=== PATIENT | female | born 1990 | race Caucasian/White ===

== ENCOUNTER → 2018-01-26 18:07 | Outpatient (CLI) | payer OTHER, SELFPAY | PROVIDERS: Family Provider Family Medicine; PCP Family Medicine; Visit Provider Physician Assistant | DX: J02.9 Acute pharyngitis, unspecified (principal) | CPT/HCPCS: 87081 ==

== ENCOUNTER → 2018-04-29 09:09 | Outpatient (CLI) | payer OTHER, SELFPAY ==
[2018-04-29 10:14] LABS: Absolute Neutrophil Count 2.3 X10^3/uL (2.0-7.7); Basophil# 0.01 X10^3/uL; Basophil% 0.2 % (0-1); Eosinophil# 0.07 X10^3/uL; Eosinophils% 1.4 % (0-5); Hematocrit 40.1 % (37-47); Hemoglobin 13.3 g/dl (12.0-15.0); Lymphocyte % 43.8 % (19-41); Mean Corp Hgb Conc 33.2 g/gl (32-36); Mean Corpuscular Hgb 27.5 pg (27.0-32.0); Mean Corpuscular Volume 82.9 fL (81-99); Monocyte# 0.46 X10^3/uL; Monocyte% 9.2 % (0-10); Neutrophil # 2.28 X10^3/uL (2.7-7.7); Neutrophil % 45.4 % (47-70); Platelet Count 277 K/mm3 (150-450); RBC Distribution Width SD 42.3 fl (35.1-43.9); Red Blood Count 4.84 M/mm3 (4.2-5.4)
[2018-04-29 10:17] LABS: POSITIVE COUNT NO; POSITIVE DIFFERENTIAL NO; POSITIVE MORPHOLOGY NO
[2018-04-29 10:55] LABS: Cholesterol 149 mg/dL (200); Ferritin 4 ng/mL (8-252); High Density Lipoprotein 43 mg/dL; Thyroid Stim Hormone (TSH) 1.75 uIU/mL (0.358-3.74); Triglycerides 78 mg/dL; Very Low Density Lipoprotein 16 mg/dL (5-40)
[2018-04-30 08:35] LABS: Vitamin B12 493 pg/mL (211-911); Vitamin D,25 Hydroxy 31.3 ng/mL (29.95-100.01)
== END ==
PROVIDERS: Family Provider Family Medicine; PCP Family Medicine; Visit Provider Family Medicine
DX: R53.83 Other fatigue (principal); K90.0 Celiac disease
CPT/HCPCS: 36415; 80061; 82306; 82607; 82728; 84443; 85025

== ENCOUNTER → 2018-07-07 11:25 | Outpatient (CLI) | payer OTHER, SELFPAY ==
[2018-07-07 13:43] LABS: Hematocrit 42.7 % (37-47); Hemoglobin 14.8 g/dl (12.0-15.0); Mean Corp Hgb Conc 34.7 g/gl (32-36); Mean Corpuscular Hgb 30.1 pg (27.0-32.0); Mean Corpuscular Volume 86.8 fL (81-99); Mean Platelet Vol. 10.5 fl (6.2-12.0); Platelet Count 308 K/mm3 (150-450); RBC Distribution Width CV 13.3 % (11.6-14.6); Red Blood Count 4.92 M/mm3 (4.2-5.4); White Blood Count 6.3 K/mm3 (4.4-11.0)
[2018-07-07 13:44] LABS: Scan Indicated on CBC? Y/N NO
[2018-07-07 14:01] LABS: Estradiol 45.1 pg/mL; Ferritin 28 ng/mL (8-252); Free T3 3.4 pg/mL (2.18-3.98); Prolactin 5.5 ng/mL; T4 Free Direct 1.07 ng/dL (0.76-1.46); Thyroid Stim Hormone (TSH) 1.59 uIU/mL (0.358-3.74)
[2018-07-07 14:09] LABS: Progesterone Level 1.03 ng/mL (See Comment)
[2018-07-07 14:25] LABS: Hemoglobin A1c 5.1 % (4.2-6.3)
[2018-07-09 15:16] LABS: Thyroid Peroxidase AB 12 IU/mL (0-34)
[2018-07-10 14:05] LABS: HPV Reflexed? NOT INDICATED
== END ==
PROVIDERS: Visit Provider Obstetrics & Gynecology
DX: Z12.4 Encounter for screening for malignant neoplasm of cervix (principal); L65.9 Nonscarring hair loss, unspecified; N92.5 Other specified irregular menstruation
CPT/HCPCS: 36415; 82670; 82728; 83036; 84144; 84146; 84403; 84439; 84443; 84481; 85027; 86376; 88175; G0145

== ENCOUNTER → 2018-07-30 18:12 | Outpatient (CLI) | payer OTHER, SELFPAY ==
--- NOTE | 2018-07-30 18:15 | US_ITS ---
STUDY: ULTRASOUND OF THE FEMALE PELVIS - COMPLETE REASON FOR EXAM: Female, 28 years old. Abnormal menstruation LMP: 07/24/2018 TECHNIQUE: Both transabdominal and transvaginal probes are used TECHNICAL QUALITY: Adequate. COMPARISON: None. FINDINGS: The uterus is normally anteverted and measures 9.0 x 5.4 x 3.7 cm with an endometrial stripe thickness of 2 mm. There is an IUD within endometrial canal. Both ovaries are seen in both demonstrate normal Doppler flow. The right measures 3.0 x 2.1 x 1.6 cm and the left 3.0 x 1.9 x 1.6 cm. Multiple follicular cysts are seen bilaterally. There is no free fluid in the cul-de-sac and no abnormal adnexal masses. US/Pelvic (Non ) IMPRESSION: The study is within normal limits Electronically Signed: Twin Tolentino MD at 4:48 EST Tel , Service support ,
== END ==
PROVIDERS: Family Provider Family Medicine; PCP Family Medicine; Referring Provider Obstetrics & Gynecology; Visit Provider Obstetrics & Gynecology
DX: N92.5 Other specified irregular menstruation (principal); N93.8 Other specified abnormal uterine and vaginal bleeding; N94.10 Unspecified dyspareunia
CPT/HCPCS: 76856; 93976

== ENCOUNTER → 2018-08-12 14:22 | Outpatient (CLI) | payer OTHER, SELFPAY ==
--- OUTSIDE RECORDS SUMMARY | 2018-10-07 19:54 | XMS RPT_ITS ---
:1990 Author Organization OHIP Care Team Providers Name Role Phone DOCTOR, OUT OF TOWN Attending Unavailable Sanju Perea Primary Care Unavailable Oc Holt Attending Unavailable Sanju Perea Referring Unavailable Oc Holt Attending Unavailable Sanju Perea Primary Care Unavailable Sanju Perea Attending Unavailable Sanju Perea Primary Care Unavailable Kavya Barreto Attending Unavailable Kavya Barreto Attending Unavailable Kavya Barreto Referring Unavailable Sanju Perea Primary Care Unavailable Kavya Barreto Attending Unavailable Sanju Perea Primary Care Unavailable PROBLEMS PROBLEMS DATE TYPE CONDITION / CODE ATTENDING STATUS SOURCE 07/07/2018 Unknown Z12.4 - Encounter Kavya Barreto for screening for [facility] neoplasm of Repository cervix / Z12.4(ICD-10) 04/29/2018 Unknown R53.83 - Other Sanju Perea Active [place] fatigue / Community R53.83(ICD-10) Hospital Repository 04/29/2018 Unknown K90.0 - Celiac Sanju Perea Active [place] disease / Community K90.0(ICD-10) Hospital Repository 01/27/2018 Unknown J02.9 - Acute Oc Holt Active [place] pharyngitis, Community unspecified / Hospital J02.9(ICD-10) Repository PROCEDURES PROCEDURES No Procedure Records FoundRESULTS RESULTS Observed: 08/12/2018 Status: F Source: [place] CULTURE, URINE 10:20 AM [facility] REPOSITORY Urine Culture ORGANISM 1: Mixed Gram Positive Organisms [place] Count 1000-10,000 MIX CULTURE Mixed contaminants. Submit a new specimen if indicated. Performed By: #### M100.0650 #### [facility] [address] [facility] [place], [address] PELVIC (NON ) Observed: 07/30/2018 Status: F Source: [place] 6:15 PM [facility] REPOSITORY [facility] Imaging Services [address] [place] [address] Pelvic (Non ) MR#: [id number] Acct: [id number] Name: MARYAM PEREA Rep #: [id number] : 1990 F 28 From: Twin Tolentino MD PCP: Sanju Perea MD Status: REG CLI Study: Pelvic (Non ) Date of Exam: 07/30/18 Exam# [id number] Ordering Dr: Kavya Barreto MD STUDY: ULTRASOUND OF THE FEMALE PELVIS - COMPLETE REASON FOR EXAM: Female, 28 years old. Abnormal menstruation LMP: 07/24/2018 TECHNIQUE: Both transabdominal and transvaginal probes are used TECHNICAL QUALITY: Adequate. COMPARISON: None. FINDINGS: The uterus is normally anteverted and measures 9.0 x 5.4 x 3.7 cm with an endometrial stripe thickness of 2 mm. There is an IUD within endometrial canal. Both ovaries are seen in both demonstrate normal Doppler flow. The right measures 3.0 x 2.1 x 1.6 cm and the left 3.0 x 1.9 x 1.6 cm. Multiple follicular cysts are seen bilaterally. There is no free fluid in the cul-de-sac and no abnormal adnexal masses. US/Pelvic (Non ) IMPRESSION: The study is within normal limits Electronically Signed: Twin Tolentino MD at 4:48 EST Tel , Service support , CC: Kavya Barreto MD; Sanju Perea MD Agriculture Worker: Signed CBC-COMPLETE BLOOD CNT Collected: 07/07/2018 Status: F Source: [place] NO DIFF 11:30 AM [facility] REPOSITORY TYPE CODE TESTS RESULT OUT OF RANGE REFERENCE UNITS LAB L100.1000 4.4-11.0 K/mm3 Normal WBC 6.3 LAB L100.1200 4.2-5.4 M/mm3 Normal RBC 4.92 LAB L100.1300 12.0-15.0 g/dl Normal HGB 14.8 LAB L100.1400 37-47 % Normal HCT 42.7 LAB L100.1500 81-99 fL Normal MCV 86.8 LAB L100.1600 27.0-32.0 pg Normal MCH 30.1 LAB L100.1700 32-36 g/gl Normal MCHC 34.7 LAB L100.1810 11.6-14.6 % Normal RDW CV 13.3 LAB L100.1820 35.1-43.9 fl Normal RDW SD 42.0 LAB L100.1900 150-450 K/mm3 Normal PLT 308 LAB L100.2000 6.2-12.0 fl Normal MPV 10.5 Performed By: #### L100.0500 #### [facility] [address] [place], [place], [address] FREE T3 Collected: 07/07/2018 Status: F Source: [place] 11:30 AM [facility] REPOSITORY TYPE CODE TESTS RESULT OUT OF RANGE REFERENCE UNITS LAB L501.43107 2.18-3.98 pg/mL Normal FREE T3 3.4 Performed By: #### L501.72611, L501.9520, L503.6550, L506.0400, L3100.5420, L3300.1750 #### [facility] [address] [facility] [facility]. [place], [place], [address] THYROID STIM HORMONE Collected: 07/07/2018 Status: F Source: [place] (TSH) 11:30 AM [facility] REPOSITORY TYPE CODE TESTS RESULT OUT OF RANGE REFERENCE UNITS LAB L501.9520 0.358-3.74 uIU/mL Normal TSH 1.59 Performed By: #### L501.61034, L501.9520, L503.6550, L506.0400, L3100.5420, L3300.1750 #### [facility] [address]. [place], [place], [id number] FERRITIN Collected: 07/07/2018 Status: F Source: [place] 11:30 AM [facility] REPOSITORY TYPE CODE TESTS RESULT OUT OF RANGE REFERENCE UNITS LAB L503.6550 8-252 ng/mL Normal FERRITIN 28 Performed By: #### L501.00629, L501.9520, L503.6550, L506.0400, L3100.5420, L3300.1750 #### [facility] [address] [facility]. [place], [place], [address] T4 FREE DIRECT Collected: 07/07/2018 Status: F Source: [place] 11:30 AM [facility] REPOSITORY TYPE CODE TESTS RESULT OUT OF RANGE REFERENCE UNITS LAB L506.0400 0.76-1.46 ng/dL Normal T4 FREE 1.07 DIRECT Performed By: #### L501.15816, L501.9520, L503.6550, L506.0400, L3100.5420, L3300.1750 #### [facility] [address] [facility]. [place], [place], [address] PROLACTIN Collected: 07/07/2018 Status: F Source: [place] 11:30 AM [facility] REPOSITORY TYPE CODE TESTS RESULT OUT OF RANGE REFERENCE UNITS LAB L3100.5420 ng/mL Normal PROLACTIN 5.5 Result Comment: NORMAL REFERENCE RANGES FEMALE NON- 2.2 - 30.3 ng/mL 8.1 - 347.6 ng/mL POST-MENOPAUSAL 0.7 - 31.5 ng/mL MALE 2.5 - 17.4 ng/mL NEW TEST METHOD AND REFERENCE RANGES FEBRUARY 02, 2012 Performed By: #### L501.28446, L501.9520, L503.6550, L506.0400, L3100.5420, L3300.1750 #### [facility] [address] [place], [address] ESTRADIOL Collected: 07/07/2018 Status: F Source: [place] 11:30 AM [facility] REPOSITORY TYPE CODE TESTS RESULT OUT OF RANGE REFERENCE UNITS LAB L3300.1750 pg/mL Normal ESTRADIOL 45.1 Result Comment: NORMAL REFERENCE RANGES FEMALE FOLLICULAR 21.4 - 164.8 pg/mL MID-CYCLE PEAK 49.9 - 367.2 pg/mL LUTEAL 40.2 - 259.0 pg/mL POST-MENOPAUSAL ON MHT <11.0 - 462.1 pg/mL NOT ON MHT <11.0 - 58.3 pg/mL MALE <11.0 - 52.5 pg/mL NOTE: [facility] HAS CONFIRMED THE DRUG FULVETRANT (FASLODEX) MAY CAUSE FALSELY ELEVATED ESTRADIOL RESULTS WHEN USING THIS TEST METHOD. IF PATIENT IS TAKING FULVESTRANT AN ALTERNATIVE METHOD SHOULD BE USED TO DETERMINE ESTRADIOL CONCENTRATION. Performed By: #### L501.44238, L501.9520, L503.6550, L506.0400, L3100.5420, L3300.1750 #### [facility] [address] [place], [address] TESTOSTERONE, SERUM TOTAL Collected: 07/07/2018 Status: F Source: [place] 11:30 AM [facility] REPOSITORY TYPE CODE TESTS RESULT OUT OF REFERENCE UNITS RANGE LAB L509.3000 ng/dL Testosterone Normal 37.19 Result Comment: NORMAL REFERENCE RANGES MALE AGE <50 123.06 - 813.86 ng/dL MALE AGE >50 89.98 - 780.10 ng/dL FEMALE PREMENOPAUSE AGE 21 - 60 9.01 - 47.94 ng/dL FEMALE POSTMENOPAUSE AGE 45 - 89 <7.00 - 45.62 ng/dL REFERENCE RANGE AND METHODOLOGY CHANGED 09/02/2017 Performed By: #### L509.3000, L509.4001 #### [facility] [address] [facility] [place], [address] PROGESTERONE LEVEL Collected: 07/07/2018 Status: F Source: [place] 11:30 AM [facility] REPOSITORY TYPE CODE TESTS RESULT OUT OF REFERENCE UNITS RANGE LAB L509.4001 See Comment ng/mL Progesterone Normal 1.03 Result Comment: Progesterone Reference Table: UNITS Female: Follicular 0.15 - 1.40 ng/mL Luteal 3.34 - 25.56 ng/mL Mid-luteal 4.44 - 28.03 ng/mL Postmenopausal 0.0 - 0.73 ng/mL : 1st Trimester 11.22 - 90.00 ng/mL 2nd Trimester 25.55 - 89.40 ng/mL 3rd Trimester 48.40 -422.50 ng/mL Performed By: #### L509.3000, L509.4001 #### [facility] [address] [place], [address] HEMOGLOBIN A1C Collected: 07/07/2018 Status: F Source: [place] 11:30 AM [facility] REPOSITORY TYPE CODE TESTS RESULT OUT OF RANGE REFERENCE UNITS LAB L501.9985 4.2-6.3 % Normal HGB A1C 5.1 Performed By: #### L501.9985 #### [facility] [address] [place], [address] THYROID PEROXIDASE AB Collected: 07/07/2018 Status: F Source: [place] 11:30 AM [facility] REPOSITORY TYPE CODE TESTS RESULT OUT OF RANGE REFERENCE UNITS LAB L3300.6900 0-34 IU/mL Normal TPO AB 12 0776 Result Comment: Performed at: - [facility] [id number] Foreign Language Instructor: Steve Escobar PhD, Phone: [phone] Performed By: #### L3300.6900 #### [facility] (refer to report for specific site) refer to report for address and phone number PAP I-G W/RFX HRHPV Collected: 07/07/2018 Status: F Source: [place] 10:30 AM [facility] REPOSITORY Order Comment: CYTOLOGY INFORMATION: - CLINICAL INFORMATION: - DATE LMP/MENOPAUSE: 06/27/18 LMP - COLLECTION VIAL: Thin Prep Vial - ELECTRIC TRANSFER OPERATOR SOURCE: CERVICAL/ENDOCERVICAL - COLLECTION TECHNIQUE: BRUSH/SPATULA Specimen Comment: [id number] Specimen Comment: Source.............Cervix;Endocervix Specimen Comment: LMP / Prev Treat...[id number] Specimen Comment: No. of containers..01 ThinPrep Vial TYPE CODE TESTS RESULT OUT OF RANGE REFERENCE UNITS LAB L7400.0800 . Normal DIAGN Comment Result Comment: NEGATIVE FOR INTRAEPITHELIAL LESION AND MALIGNANCY. LAB L7400.0900 . Normal ADEQ Comment Result Comment: Satisfactory for evaluation. Endocervical and/or squamous metaplastic cells (endocervical component) are present. LAB L7400.1400 . Normal PERFORM Comment Result Comment: aRzia Lopez, Residency Coordinator LAB L7400.2575 . Normal TEST METHOD Comment Result Comment: This liquid based ThinPrep(R) pap test was screened with the use of an image guided system. LAB L7400.2600 . Normal . COMM LAB L7400.2700 . Normal PAPSMR Comment Result Comment: The Pap smear is a screening test designed to aid in the detection of premalignant and malignant conditions of the uterine cervix. It is not a diagnostic procedure and should not be used as the sole means of detecting cervical cancer. Both false-positive and false-negative reports do occur. LAB L7400.2800 . Normal HPV RFLX Comment Result Comment: The HPV DNA reflex criteria were not met with this specimen result therefore, no HPV testing was performed. Performed at: - [facility] [id number] Foreign Language Instructor: Ana Beatty MD, Phone: [phone] Performed By: #### L7400.0350 #### [facility] (refer to report for specific site) refer to report for address and phone number CBC W/DIFF, AUTOMATED Collected: 04/29/2018 Status: F Source: [place] 9:10 AM [facility] REPOSITORY TYPE CODE TESTS RESULT OUT OF RANGE REFERENCE UNITS LAB L100.1000 4.4-11.0 K/mm3 Normal WBC 5.0 LAB L100.1200 4.2-5.4 M/mm3 Normal RBC 4.84 LAB L100.1300 12.0-15.0 g/dl Normal HGB 13.3 LAB L100.1400 37-47 % Normal HCT 40.1 LAB L100.1500 81-99 fL Normal MCV 82.9 LAB L100.1600 27.0-32.0 pg Normal MCH 27.5 LAB L100.1700 32-36 g/gl Normal MCHC 33.2 LAB L100.1810 11.6-14.6 % Normal RDW CV 14.0 LAB L100.1820 35.1-43.9 fl Normal RDW SD 42.3 LAB L100.1900 150-450 K/mm3 Normal PLT 277 LAB L100.2000 6.2-12.0 fl Normal MPV 10.0 LAB L100.2100 47-70 % Low NEUT% 45.4 LAB L100.2200 19-41 % High LY% 43.8 LAB L100.2300 0-10 % Normal MONO% 9.2 LAB L100.2400 0-5 % Normal EO% 1.4 LAB L100.2500 0-1 % Normal BASO% 0.2 LAB L100.2550 0.0-0.9 % Normal IM GRAN % 0.000 Result Comment: IG% - Immature Granulocytes (promyelocytes, myelocytes and metamyelocytes) > 1% indicates that a LEFT SHIFT is Present. LAB L100.2620 2.0-7.7 X10 3/uL Normal Absolute Neut 2.3 LAB L100.2720 0.83-4.51 X10 3/ul Normal Absolute Lymph 2.20 Performed By: #### L100.0100 #### [facility] [address] [place], [address] LIPID PROFILE Collected: 04/29/2018 Status: F Source: [place] 9:10 AM [facility] REPOSITORY TYPE CODE TESTS RESULT OUT OF RANGE REFERENCE UNITS LAB L501.4900 200 mg/dL Normal CHOL 149 Result Comment: <200 mg/dL Desirable 200-240 mg/dL Borderline >240 mg/dL High Risk LAB L501.5000 mg/dL Normal TRIG 78 Result Comment: The drugs N-Acetylcysteine and Metamizole may falsely depress this assay. Serum Triglycerides Reference Interval Normal <150 mg/dL Borderline high 150 - 199 mg/dL High 200 - 499 mg/dL Very High > or = 500 mg/dL LAB L501.6400 mg/dL Normal HDL 43 Result Comment: The drugs N-Acetylcysteine and Metamizole may falsely depress this assay. Reference Range HDL <40 mg/dL Low HDL Cholesterol HDL >or= 60 mg/dL High HDL Cholesterol LAB L501.6500 0-130 mg/dL Normal LDL 90 LAB L501.6600 5-40 mg/dL Normal VLDL 16 Performed By: #### L500.4100, L501.9520, L503.6550 #### [facility] [address] [place], [address] THYROID STIM HORMONE Collected: 04/29/2018 Status: F Source: [place] (TSH) 9:10 AM [facility] REPOSITORY TYPE CODE TESTS RESULT OUT OF RANGE REFERENCE UNITS LAB L501.9520 0.358-3.74 uIU/mL Normal TSH 1.75 Performed By: #### L500.4100, L501.9520, L503.6550 #### [facility] [address] [place], [address] FERRITIN Collected: 04/29/2018 Status: F Source: [place] 9:10 AM [facility] REPOSITORY TYPE CODE TESTS RESULT OUT OF REFERENCE UNITS RANGE LAB L503.6550 8-252 ng/mL Low FERRITIN 4 Performed By: #### L500.4100, L501.9520, L503.6550 #### [facility] [address] [place], [address] VITAMIN B12 Collected: 04/29/2018 Status: F Source: [place] 9:10 AM [facility] REPOSITORY TYPE CODE TESTS RESULT OUT OF RANGE REFERENCE UNITS LAB L503.0105 211-911 pg/mL Normal Vitamin B12 493 Performed By: #### L503.0105, L506.1000 #### [facility] [address] [place], [address] VITAMIN D,25 HYDROXY Collected: 04/29/2018 Status: F Source: [place] 9:10 AM [facility] REPOSITORY TYPE CODE TESTS RESULT OUT OF RANGE REFERENCE UNITS LAB L506.1000 29.95-100.01 ng/mL Normal Vitamin D 31.3 25-OH Result Comment: Vitamin D 25(OH) Status Range Deficiency <20 ng/mL (50nmol/L) Insuffciency 20 - 30 ng/mL (50 - 75 nmol/L) Sufficiency 30 - 100 ng/mL (75 - 250 nmol/L) Toxicity >100 ng/mL (>250 nmol/L) Performed By: #### L503.0105, L506.1000 #### [facility] [address] [place], [address] Observed: 01/26/2018 Status: F Source: [place] CULTURE, R/O STREP A 5:15 PM [facility] REPOSITORY SEUN Culture No Group A Beta Streptococcus isolated. * This cultures intended use is to screen for Beta Streptococcus A only. All other pathogens and potential pathogens will not be screened for or reported. If a complete workup of all potential pathogens is indicated an order for a routine throat culture is required. Performed By: #### M100.010 #### [facility] [address] [place], [address] URGENT CARE VISIT Observed: 01/25/2018 Status: F Source: [place] REPORT 5:27 PM [facility] REPOSITORY [facility] [address] [place] [address] [address] [place], [place] [address] OFFICE VISIT Date of Service: 01/25/18 MR#: [id number] Acct: [id number] Name: MARYAM PEREA Rep #: [id number] : 1990 Provider: Oc YANG Age/Sex: 27/F Location: [facility] Status: Signed Intake Vital Signs01/25/18 Height 5 ft 0.5 in Intake Visit Reasons: EAR ACHE Chief Complaint: pain, sore throat Is patient in pain?: Yes (L ear ) Allergies gluten Allergy (Verified 01/25/18 17:10) Diarrhea wheat Allergy (Verified 01/25/18 17:10) Food Allergy Medications Labetalol [Trandate] 100 mg PO BID 12/02/16 [History Confirmed 01/25/18] [facility] Medical History Abscess (Acute) Cardiac arrhythmia (Acute) Surgical History History of wisdom tooth extraction (Acute) Social History Smoking Status: Never smoker alcohol intake: never HPI HPI Chief Complaint: pain, sore throat Details: MARYAM PEREA, is a 27 F who presents to the office today for initial evaluation approximately 24 hour history of sore throat and left ear pain. Patient notes no complaints of fever, chills, sweats, rash, chest pain/shortness of breath, or cough. Patient is non-smoker noting no other family members in her household with similar signs or symptoms. She notes no other complaints at this time. ROS Const Constitutional: No fever(s), body ache or chills Eyes Eyes: No change in vision ENT ENT: Positive for ear pain, ear pressure and sore throat; no ear discharge, hearing loss, post nasal drip or sinus pressure Resp Respiratory: No cough, chest congestion or shortness of breath Cardio Cardiology: No chest pain at rest, chest pain with exertion, shortness of breath, dyspnea on exertion, irregular heart rhythm, generalized swelling or leg pain with exertion Gastro GI: No abdominal pain, change in stool character or change in bowel habits Musc Musculoskeletal: No numbness or tingling Skin Skin: No sores, rash or redness Neuro Neurology: No numbness or tingling Exam Const General: cooperative, healthy appearing, no acute distress, comfortable, well groomed Nutritional Appearance: average body habitus Orientation: alert, awake, oriented x3 HENMT Head: normal to inspection Ears: hearing grossly normal bilaterally, external ears normal, TM's normal bilaterally, EAC's normal Nose: external nose normal, nares normal, septum normal, nasal discharge (Scant) clear Face and sinus: normal facial exam, sinuses nontender, face symmetric Mouth: tongue normal, lip normal, oropharynx normal, oral mucosae normal Teeth and gingiva: gingiva normal, dentition normal Throat: uvula midline, posterior oropharynx normal, abnormal tonsil (Trace erythema; rapid strep test today negative) bilaterally, no postnasal drainage Eyes General: appearance normal, both eyes and all related structures Neck Neck: normal visual inspection, full ROM, no lymphadenopathy, no meningeal signs, supple Neck mass: No Thyroid: thyroid normal Lymphatic: no lymphadenopathy noted Chest Chest palpation AND inspection: normal inspection of the chest Resp Effort AND Inspection: normal respiratory effort, able to speak in complete sentences, symmetric chest movement, no cough Auscultation: Bilateral: Clear to Auscultation Cardio Palpation: normal PMI Rate: regular rate Rhythm: regular rhythm Heart Sounds: S1 normal, S2 normal, no gallops, no murmurs, no rubs Pulses: radial pulses present GI Inspection: normal to inspection Palpation: soft, no hepatosplenomegaly Skin General: no rashes or lesions noted Neuro General: alert, awake, oriented x3, gait normal Cognition: normal cognition Speech: speech normal Gait: normal gait Motor: muscle tone normal throughout Sensory Exam: no sensory deficits noted Psych Appearance: grossly normal Mental Status: mental status grossly normal Mood: congruent mood Affect: normal affect Speech and Movement: speech and movement normal Attitude: cooperative Thought Process: normal Thought Content: normal Judgment: judgment good Assessment AND Plan Problems 1. URI (upper respiratory infection) J06.9 2. Pharyngitis J02.9 Plan Patient aware today's rapid strep test was negative therefore culture sent to lab for further evaluation. Clear fluids, rest, Advil/Tylenol/Claritin as needed for symptomatic relief. Avoid tobacco smoke exposure. Follow-up with PCP in 5 7 days should symptoms not improved, sooner should symptoms worsen or any other concerns develop. Patient states acknowledging understanding all the above. This note was generated with [employer] dictation software. It may contain incorrect words, spelling, and punctuation that were not noted in checking the note before signing. Orders Orders: Coding Level of Care Code Off vis,est,level 3 Diagnoses URI (upper respiratory infection) J06.9 Pharyngitis J02.9 01/25/18 1727 <Electronically signed by Oc YANG> Date Oc YANG Cosigner Signature: Date (if applicable) CC: ALLERGIES ALLERGIES DATE TYPE / CODE NAME / CODE REACTION SEVERITY SOURCE 01/25/2018 Drug gluten[facility]F0060 [facility] ) Repository CT) 01/25/2018 Drug wheat/J90282 Food Allergy Unknown [facility] Allergy/4160 3412([facility] [address](SNOM[facility] Repository [facility]) ENCOUNTERS ENCOUNTERS ADMIT/DISCHARGE ACCOUNT ADMITTING ENCOUNTER LOCATION SOURCE NUMBER CLASS 08/12/2018 [id number] [place]ulatory [place] 0 [facility] ing:[facility] Repository 07/30/2018 [id number] Ambulatory [place] 9 [facility] ing:US Repository 07/07/2018 [id number] Ambulatory [place] 5 [facility] ing:WOBLAB Repository 04/29/2018 [id number] Ambulatory [place] 5 [facility] ing:MFPLAB Repository 01/26/2018 [id number] Ambulatory [place] 6 [facility] ing:LABSPEC Repository 01/25/2018/ [id number] Ambulatory BMSBuilding:B [place] 8 4 [facility] Repository 09/03/2017 [id number] Ambulatory [place] 3 [facility] ing:MASS Repository PAYERS PAYERS ENCOUNTER GUARANTOR PAYER SUBSCRIBER SOURCE 08/12/2018 MARYAM Cotton Primary Insurance:[facility] K[address]LA [address] [facility] [id number] Number: Repository [id number]: [phone] [id number] [phone] () Date:8475-89-59YT [facility] [address], [place] [address]FT: CHECK WEBSITE 08/12/2018 Secondary NOT GIVENUNK [place] Insurance:SELF PAY [facility] Number: Effective Repository Date:2018-08-12 07/30/2018 KAYLA Samson Primary Insurance:[facility] KAYLA [address]EREA[address] [facility]: [address] Number: Repository [id number]: [phone] [id number] [phone] () Date:1579-45-53BZ [address] [address]QTSJINLRC, [place] [address]EY: CHECK WEBSITE 07/30/2018 Secondary NOT GIVENUNK [place] Insurance:SELF PAY [facility] Number: Effective Repository Date:2018-07-26 07/07/2018 KAYLA Samson Primary Insurance:[facility] KAYLA PEREA[address] [facility]: Community [employer] SERVICESPolicy [id number] Number: Repository [address]Fkz: 330 [id number] [phone] () Date:0153-86-07HE [address] [address]NA[place], [place] [address]AJ: CHECK WEBSITE 07/07/2018 Secondary NOT GIVENUNK [place] Insurance:SELF PAY [facility] Number: Effective Repository Date:2018-07-07 04/29/2018 MARYAM Cotton Primary Insurance:[facility] KAYLA PEREA[address] [facility]: Community [facility] [id number] Number: Repository [address]Jvn: 330 [id number] [phone] () Date:7742-79-80DV [address] [address], [place] [address]MV: CHECK WEBSITE 04/29/2018 Secondary NOT GIVENUNK [place] Insurance:SELF PAY [facility] Number: Effective Repository Date:2018-04-29 01/26/2018 MAYRAM Cotton Primary Insurance:[facility] KAYLA [address]EREA[address] [facility] [facility]: Community [facility] [id number] Number: Repository [address]Tjr: 330 [id number] [phone] () Date:4381-86-88HJ [address] [address]TRVSPPTM, [place] [address]BF: CHECK WEBSITE 01/26/2018 Secondary NOT GIVENUNK [place] Insurance:SELF PAY [facility] Number: Effective Repository Date:2018-01-26 01/25/2018 Kayla Samson Primary Insurance:[facility] KAYLA [place] [facility] [facility] [place] [id number], [place] Number: Repository [id number]: [phone] [id number] [phone] () Date:[id number] [address] [id number], [place] [address]: CHECK WEBSITE 01/25/2018 Secondary NOT GIVENUNK Abundio Insurance:SELF PAY [facility] Number: Effective Repository Date:2018-01-25 09/03/2017 Kayla Samson Primary NOT GIVENUNK Abundio [id number] Insurance:SELF PAY [facility] [place] Number: Effective Repository [id number]: [phone]) Date:2017-07-29 [phone] ()
== END ==
PROVIDERS: Family Provider Family Medicine; PCP Family Medicine; Visit Provider Obstetrics & Gynecology
DX: N39.0 Urinary tract infection, site not specified (principal)
CPT/HCPCS: 87086; 87088

== ENCOUNTER → 2018-11-10 10:28 | Outpatient (CLI) | payer OTHER, SELFPAY ==
[2018-11-10 16:14] LABS: Estradiol 37.8 pg/mL
[2018-11-10 16:19] LABS: Hemoglobin A1c 4.7 % (4.2-6.3)
[2018-11-10 16:20] LABS: Progesterone Level 57.65 ng/mL (See Comment)
== END ==
PROVIDERS: Visit Provider Obstetrics & Gynecology
DX: L65.9 Nonscarring hair loss, unspecified (principal); N92.6 Irregular menstruation, unspecified
CPT/HCPCS: 36415; 82670; 83036; 84144; 84270; 84403

== ENCOUNTER → 2020-03-27 | Outpatient (CLI) | payer OTHER, SELFPAY ==
[2020-03-27 11:01] VITALS: BMI 26.3
[2020-03-27 21:38] LABS: Chlamydia Trachomatis by PCR Negative (Negative); Neisserai gonorrhoeae by PCR Negative (Negative); Probe Check PASS; Sample Adequacy Control PASS; Specimen Processing Control PASS
== END | disposition home or self-care (01) ==
LOC: LABSPEC 17:13
PROVIDERS: PCP Family Medicine; Referring Provider Nurse Practitioner Women's Health; Visit Provider Nurse Practitioner Women's Health
DX: Z11.3 Encounter for screening for infections with a predominantly sexual mode of transmission (principal)
CPT/HCPCS: 87491; 87591

== ENCOUNTER → 2020-11-08 11:04 | Outpatient (CLI) | payer MEDICAID, SELFPAY ==
[2020-11-08 10:47] VITALS: BMI 25.0
[2020-11-08 11:18] LABS: Absolute Lymphocyte Count 1.86 X10^3/uL (0.83-4.51); Basophil# 0.03 X10^3/uL; Basophil% 0.6 % (0-1); Eosinophil# 0.04 X10^3/uL; Eosinophils% 0.8 % (0-5); Hematocrit 41.5 % (37-47); Hemoglobin 14.3 g/dL (12.0-15.0); Lymphocyte # 1.86 X10^3/ul (4.0); Lymphocyte % 35.1 % (19-41); Mean Corp Hgb Conc 34.5 g/dL (32-36); Mean Corpuscular Hgb 30.5 pg (27.0-32.0); Mean Corpuscular Volume 88.5 fL (81-99); Mean Platelet Vol. 9.8 fl (6.2-12.0); Monocyte# 0.37 X10^3/uL; NRBC Flagged by Analyzer 0 % (0-5); Neutrophil # 2.99 X10^3/uL (2.7-7.7); Neutrophil % 56.3 % (47-70); Platelet Count 273 K/mm3 (150-450); RBC Distribution Width CV 11.5 % (11.6-14.6); RBC Distribution Width SD 36.4 fl (35.1-43.9); Red Blood Count 4.69 M/mm3 (4.2-5.4); White Blood Count 5.3 K/mm3 (4.4-11.0)
[2020-11-08 12:24] LABS: Thyroid Stim Hormone (TSH) 1.38 uIU/mL (0.358-3.74)
== END ==
PROVIDERS: PCP Family Medicine; Referring Provider Nurse Practitioner Women's Health; Visit Provider Nurse Practitioner Women's Health
DX: Z13.29 Encounter for screening for other suspected endocrine disorder (principal); N92.0 Excessive and frequent menstruation with regular cycle
CPT/HCPCS: 36415; 84443; 85025

== ENCOUNTER → 2021-04-01 | Outpatient (CLI) | payer MEDICAID, SELFPAY ==
[2021-04-01 13:59] VITALS: BMI 25.0
[2021-04-16 15:45] LABS: HPV Reflexed? NOT INDICATED
== END | disposition home or self-care (01) ==
LOC: LABSPEC 15:13
PROVIDERS: PCP Family Medicine; Referring Provider Nurse Practitioner Women's Health; Visit Provider Nurse Practitioner Women's Health
DX: Z12.4 Encounter for screening for malignant neoplasm of cervix (principal)
CPT/HCPCS: 88175; G0145

== ENCOUNTER 2021-12-16 15:50 | Outpatient (CLI) | payer MEDICAID, SELFPAY ==
[2021-12-16 17:51] LABS: Hemoglobin 13.6 g/dL (12.0-15.0); Mean Corpuscular Hgb 30.6 pg (27.0-32.0); Mean Corpuscular Volume 89.9 fL (81-99); Mean Platelet Vol. 10.1 fl (6.2-12.0); Platelet Count 288 K/mm3 (150-450); RBC Distribution Width CV 11.7 % (11.6-14.6); RBC Distribution Width SD 38.1 fl (35.1-43.9); RET-HE 33.8 pg (30-35); Red Blood Count 4.45 M/mm3 (4.2-5.4); Reticulocyte Count 1.55 % (0.5-1.5); White Blood Count 7.1 K/mm3 (4.4-11.0)
[2021-12-16 18:17] LABS: Vitamin D,25 Hydroxy 39.1 ng/mL
[2021-12-16 18:23] LABS: Ferritin 58 ng/mL (8-252); Iron 127 ug/dL (50-170); Iron Binding Capacity,Total 418 ug/dL (250-450); Thyroid Stim Hormone (TSH) 1.55 uIU/mL (0.358-3.74)
== END 2021-12-16 23:59 | disposition home or self-care (01) ==
LOC: MFPLAB 15:50
PROVIDERS: PCP Family Medicine; Visit Provider Family Medicine
DX: F41.1 Generalized anxiety disorder (principal); D50.9 Iron deficiency anemia, unspecified
CPT/HCPCS: 36415; 82306; 82728; 83540; 83550; 84443; 85027; 85045

== ENCOUNTER → 2022-09-09 | Outpatient (CLI) | payer MEDICAID, SELFPAY ==
[2022-09-09 15:37] LABS: Bacteria 0 SEEN /hpf (None Seen); Mucous, Urine 0 SEEN /hpf (<or=2+); White Blood Cells 0 SEEN /hpf (0-5)
[2022-09-09 17:50] LABS: Erythrocyte Sedimentation Rate 7 mm/hr (0-30)
[2022-09-09 17:53] LABS: Absolute Neutrophil Count 3.7 X10^3/uL (2.0-7.7); Basophil# 0.05 X10^3/uL; Basophil% 0.7 % (0-1); Eosinophil# 0.16 X10^3/uL; Eosinophils% 2.1 % (0-5); Hematocrit 43.6 % (37-47); Hemoglobin 14.8 g/dL (12.0-15.0); Lymphocyte % 39.4 % (19-41); Mean Corp Hgb Conc 33.9 g/dL (32-36); Mean Corpuscular Hgb 30.4 pg (27.0-32.0); Mean Corpuscular Volume 89.5 fL (81-99); Mean Platelet Vol. 10.2 fl (6.2-12.0); Monocyte# 0.67 X10^3/uL; Monocyte% 8.8 % (0-10); NRBC Flagged by Analyzer 0 % (0-5); Neutrophil # 3.72 X10^3/uL (2.7-7.7); Neutrophil % 48.7 % (47-70); Platelet Count 306 K/mm3 (150-450); RBC Distribution Width CV 11.7 % (11.6-14.6); RBC Distribution Width SD 38.2 fl (35.1-43.9); Red Blood Count 4.87 M/mm3 (4.2-5.4); White Blood Count 7.6 K/mm3 (4.4-11.0)
[2022-09-09 18:06] LABS: ALB/GLOB Ratio 1.1 RATIO (0.9-2.4); AST(SGOT) 18 U/L (15-37); Alanine Aminotransfer ALT/SGPT 28 U/L (13-56); Albumin, Serum 3.7 g/dL (3.2-5.0); Alkaline Phosphatase 39 U/L (45-117); Anion Gap 6 (5-15); BUN 15 mg/dL (7-18); Calcium,Total 9.3 mg/dL (8.5-10.1); Chloride 104 mmol/L (98-107); Creatinine, Serum 0.88 mg/dL (0.55-1.02); EST Glomerular Filtration Rate 80 mL/min (>60); Est Glom Filt Rate - Afr Amer 97 mL/min (>60); Globulin 3.5 g/dL (2.2-4.2); Glucose 91 mg/dL (74-106); Potassium 4.2 mmol/L (3.5-5.1); Protein, Total 7.2 g/dL (6.4-8.2); Sodium Level 137 mmol/L (136-145)
[2022-09-09 18:06] LABS: Color, Urine Straw (Yellow); Glucose, Dipstick Normal (Normal); Ketone-Dipstick Negative (Negative); Leukocyte Esterase-Dipstick Negative /ul (Negative); Nitrite-Dipstick Negative (Negative); Occult Blood-Urine 50 /ul (Negative); Protein-Dipstick Negative (Negative); Urine Bilirubin Dipstick Negative (Negative); Urine Clarity Clear (Clear); Urine Urobilinogen Normal (Normal)
[2022-09-09 18:20] LABS: Red Blood Cells-Urine 0-5 SEEN /hpf (0-5); Squamous Epithelial Cells - UA 0-5 SEEN /hpf (5-10)
== END | disposition home or self-care (01) ==
LOC: MFPLAB 15:31
PROVIDERS: PCP Family Medicine; Visit Provider Family Medicine
DX: N39.0 Urinary tract infection, site not specified (principal); R50.9 Fever, unspecified
CPT/HCPCS: 36415; 80053; 81001; 85025; 85652; 87086; 87088

== ENCOUNTER → 2024-01-12 | Outpatient (CLI) | payer MEDICAID, SELFPAY ==
[2024-01-12 12:40] LABS: Absolute Lymphocyte Count 2.14 X10^3/uL (0.83-4.51); Absolute Neutrophil Count 2.9 X10^3/uL (2.0-7.7); Basophil# 0.04 X10^3/uL; Basophil% 0.7 % (0-1); Eosinophil# 0.16 X10^3/uL; Eosinophils% 2.8 % (0-5); Hematocrit 41.1 % (37-47); Hemoglobin 13.9 g/dL (12.0-15.0); Lymphocyte # 2.14 X10^3/ul (0.83-4.51); Lymphocyte % 37.3 % (19-41); Mean Corp Hgb Conc 33.8 g/dL (32-36); Mean Corpuscular Volume 85.6 fL (81-99); Mean Platelet Vol. 10.4 fl (6.2-12.0); Monocyte# 0.51 X10^3/uL; Monocyte% 8.9 % (0-10); NRBC Flagged by Analyzer 0 % (0-5); Neutrophil # 2.88 X10^3/uL (2.7-7.7); Neutrophil % 50.1 % (47-70); Platelet Count 265 K/mm3 (150-450); RBC Distribution Width CV 13.1 % (11.6-14.6); RBC Distribution Width SD 40.8 fl (35.1-43.9); White Blood Count 5.7 K/mm3 (4.4-11.0)
[2024-01-12 13:01] LABS: Vitamin B12 489 pg/mL (211-911); Vitamin D,25 Hydroxy 35.3 ng/mL
[2024-01-12 13:13] LABS: ALB/GLOB Ratio 1.2 RATIO (0.9-2.4); AST(SGOT) 26 U/L (15-37); Alanine Aminotransfer ALT/SGPT 37 U/L (13-56); Alkaline Phosphatase 60 U/L (45-117); Anion Gap 3 (5-15); BUN 10 mg/dL (7-18); BUN/Creat Ratio 11.8 RATIO (10-20); Chloride 107 mmol/L (98-107); Creatinine, Serum 0.85 mg/dL (0.55-1.02); EST Glomerular Filtration Rate 83 mL/min (>60); Est Glom Filt Rate - Afr Amer 100 mL/min (>60); Globulin 3.4 g/dL (2.2-4.2); Glucose 91 mg/dL (74-106); Iron 54 ug/dL (50-170); Protein, Total 7.4 g/dL (6.4-8.2); Sodium Level 137 mmol/L (136-145)
[2024-01-13 16:09] LABS: Deamidated Gliadin IgA 4 units (0-19); Deamidated Gliadin IgG 3 units (0-19); Endomysial Antibody IgA Negative (Negative); Immunoglobulin A 102 mg/dL (87-352); t-Transglutaminase IgA <2 U/mL (0-3)
== END | disposition home or self-care (01) ==
LOC: MTLAB 09:54
PROVIDERS: PCP Family Medicine; Referring Provider Family Medicine; Visit Provider Family Medicine
DX: K90.0 Celiac disease (principal); R53.83 Other fatigue
CPT/HCPCS: 36415; 80053; 82306; 82607; 82784; 83516; 83540; 84443; 85025; 86255

== ENCOUNTER → 2024-04-11 | Outpatient (CLI) | payer MEDICAID, SELFPAY ==
[2024-04-15 16:10] LABS: HPV APTIMA, High Risk Negative (Negative)
== END | disposition home or self-care (01) ==
LOC: LABSPEC 13:21
PROVIDERS: PCP Family Medicine; Referring Provider Nurse Practitioner Women's Health; Visit Provider Nurse Practitioner Women's Health
DX: Z12.4 Encounter for screening for malignant neoplasm of cervix (principal)
CPT/HCPCS: 87624; 88175; G0145